=== PATIENT | female | born 1985 | race Caucasian/White ===

== ENCOUNTER → 2019-09-01 | Outpatient (REF) | payer BC ==
[~2019-09-01] MED LIST: LEVO88TA3 PO
== END ==
LOC: M LAB LCGH 11:36
PROVIDERS: ATTEND Nurse Practitioner Family
DX: Z12.4 Encounter for screening for malignant neoplasm of cervix (principal); Z00.00 Encounter for general adult medical examination without abnormal findings

== ENCOUNTER 2019-09-06 08:34 | Day surgery (SDC) | payer BC ==
[~2019-09-06] VITALS: Ht 165.1 cm; Wt 58.5 kg
[~2019-09-06 08:34] MED LIST changes: +NS 1,000 ML IV ONE
[2019-09-06] MEDS ORDERED: LIDOCAINE 2% INJ 100 MG/5 ML SDV (FOR ANES.) As Ordered ONE (09:47)
[2019-09-06] MEDS ORDERED: PROPOFOL 200 MG/20 ML VIAL As Ordered ONE ×2 (09:47→09:56)
--- NOTE | 2019-09-06 10:05 | ROOR ---
Patient Name: Alejandra Espinoza Procedure Date: 09/06/2019 9:40 AM Date of : 1985 Age: 34 Room: [facility] Gender: Female Note Status: Finalized Procedure: Total Colonoscopy to Cecum + ileoscopy + Bx Indications: Change in bowel habits Providers: Mckay Marinelli MD Referring MD: Lulú SANDOVAL NP Requesting Provider: Medicines: Monitored Anesthesia Care Complications: No immediate complications. Procedure: Pre-Anesthesia Assessment: - The heart rate, respiratory rate, oxygen saturations, blood pressure, adequacy of pulmonary ventilation, and response to care were monitored throughout the procedure. The Colonoscope was introduced through the anus and advanced to the terminal ileum, with identification of the appendiceal orifice and IC valve. The colonoscopy was performed without difficulty. The patient tolerated the procedure well. The quality of the bowel preparation was excellent. Findings: The perianal and digital rectal examinations were normal. Non-bleeding internal hemorrhoids were found during retroflexion. The hemorrhoids were small and Grade I (internal hemorrhoids that do not prolapse). No other significant abnormalities were identified in a careful examination of the remainder of the colon. Biopsies for histology were taken with a cold forceps from the ascending colon, transverse colon and descending colon for evaluation of microscopic colitis. The terminal ileum appeared normal. The exam was otherwise without abnormality. Impression: - Non-bleeding internal hemorrhoids. - The examined portion of the ileum was normal. - The examination was otherwise normal. - Biopsies were taken with a cold forceps from the ascending colon, transverse colon and descending colon for evaluation of microscopic colitis. - The exam was otherwise normal to the cecum. Recommendation: - Patient has a contact number available for emergencies. The signs and symptoms of potential delayed complications were discussed with the patient. Return to normal activities tomorrow. Written discharge instructions were provided to the patient. - High fiber diet. - Discharge patient to home. - Continue present medications. - Await pathology results. - Telephone GI clinic for pathology results in 1 week. - Return to referring physician. - Repeat colonoscopy at age 49 for screening purposes. - Check Portal Online for Path Results.([email or web address] - The findings and recommendations were discussed with the patient's family. Mckay Marinelli MD Mckay Marinelli MD 09/06/2019 10:05:15 AM Electronically signed by Mckay Marinelli MD Number of Addenda: 0 Note Initiated On: 09/06/2019 9:40 AM Estimated Blood Loss: Estimated blood loss: none.
[2019-09-06 10:25] VITALS: BP 120/66
== END 2019-09-06 10:33 | disposition home or self-care (01) ==
LOC: M OPP 08:34
PROVIDERS: ATTEND Internal Medicine Gastroenterology
DX: K64.0 First degree hemorrhoids (principal); R19.4 Change in bowel habit; F17.210 Nicotine dependence, cigarettes, uncomplicated; Z79.899 Other long term (current) drug therapy; Z92.3 Personal history of irradiation

== ENCOUNTER 2023-03-07 11:36 | Day surgery (SDC) | payer BC ==
[~2023-03-07] VITALS: Ht 165.1 cm; Wt 59.9 kg
[~2023-03-07 11:36] MED LIST changes: +IBUP200C29 PO; +LIOT5TAB6 PO; -NS 1,000 ML IV ONE
[2023-03-07] MEDS ORDERED: LIDOCAINE 1% SDV 5ML VIAL SC PRN (12:35)
[2023-03-07] MEDS ORDERED: LR 1,000 ML IV SCH ×2 (12:35→15:25)
[2023-03-07] MEDS ORDERED: MIDAZOLAM INJ 2MG/2ML VIAL As Ordered ONE (13:53)
[2023-03-07] MEDS ORDERED: ONDANSETRON 4MG 2ML VIAL As Ordered ONE (13:53)
[2023-03-07] MEDS ORDERED: fentaNYL 100 MCG/2 ML INJECTION As Ordered ONE (13:53)
[2023-03-07] MEDS ORDERED: propofoL 200 MG/20 ML VIAL As Ordered ONE (13:53)
[2023-03-07] MEDS ORDERED: LIDOCAINE 2% 100MG/5ML SDV (FOR ANES.) As Ordered ONE (13:54)
[2023-03-07] MEDS ORDERED: ACETAMINOPHEN 1000MG 100ML IV BAG As Ordered ONE (13:54)
[2023-03-07] MEDS ORDERED: CIPRODEX OTIC SUSP 7.5ML As Ordered ONE (14:15)
[2023-03-07] MEDS ORDERED: oxyCODONE 5MG TAB PO PRN (15:25)
[2023-03-07] MEDS ORDERED: METOCLOPRAMIDE INJ 10MG/2ML VIAL IV PRN (15:25)
[2023-03-07] MEDS ORDERED: ONDANSETRON 4MG 2ML VIAL IV PRN (15:25)
[2023-03-07] MEDS ORDERED: fentaNYL 100 MCG/2 ML INJECTION IV PRN (15:25)
[2023-03-07 15:52] VITALS: BP 122/73
== END 2023-03-07 16:25 | disposition home or self-care (01) ==
LOC: M SDC 11:36
PROVIDERS: ATTEND Otolaryngology
DX: H69.93 Unspecified Eustachian tube disorder, bilateral (principal); H93.13 Tinnitus, bilateral; H90.6 Mixed conductive and sensorineural hearing loss, bilateral; E05.90 Thyrotoxicosis, unspecified without thyrotoxic crisis or storm; E89.0 Postprocedural hypothyroidism; Z79.899 Other long term (current) drug therapy; F17.210 Nicotine dependence, cigarettes, uncomplicated
CPT/HCPCS: 69436; J0131; J1100; J2250; J2405; J3010

== ENCOUNTER 2024-04-07 10:56 | Day surgery (SDC) | payer BC ==
[~2024-04-07] VITALS: Ht 165.1 cm; Wt 60.8 kg
[~2024-04-07 10:56] MED LIST changes: +LEVO100T5 PO; +NORT25CA2 PO; +OMEP40CA5 PO
[2024-04-07] MEDS: NS 1,000 ML IV ONE (11:59)
[2024-04-07] MEDS ORDERED: LIDOCAINE 2% 100MG/5ML SDV (FOR ANES.) As Ordered ONE (12:36)
[2024-04-07] MEDS ORDERED: propofoL 200 MG/20 ML VIAL As Ordered ONE (12:36)
[2024-04-07] MEDS ORDERED: fentaNYL 100 MCG/2 ML INJECTION As Ordered ONE (12:37)
[2024-04-07 13:14] VITALS: BP 126/78; O2SAT 97
== END 2024-04-07 13:15 | disposition home or self-care (01) ==
LOC: M OPP 10:56
PROVIDERS: ATTEND Internal Medicine Gastroenterology
DX: K31.89 Other diseases of stomach and duodenum (principal); K22.89 Other specified disease of esophagus; R10.84 Generalized abdominal pain; R12 Heartburn; F17.200 Nicotine dependence, unspecified, uncomplicated; Z86.39 Personal history of other endocrine, nutritional and metabolic disease; Z79.890 Hormone replacement therapy; Z79.899 Other long term (current) drug therapy; Z92.3 Personal history of irradiation
CPT/HCPCS: 43239; 88305; J3010